=== PATIENT | female | born 1995 | race Two or more races ===

== ENCOUNTER 2021-10-16 16:36 | Emergency (ER) | payer OTHER ==
[~2021-10-16] VITALS: Ht 172.7 cm; Wt 104.3 kg
[2021-10-16 17:26] VITALS: BP 104/74
[2021-10-16] MEDS ORDERED: AMOX500T86 PO (17:44)
== END 2021-10-16 18:06 | disposition home or self-care (01) ==
LOC: ER 16:36
DX: S50.811A Abrasion of right forearm, initial encounter (principal); W55.03XA Scratched by cat, initial encounter; Y93.89 Activity, other specified; Y92.89 Other specified places as the place of occurrence of the external cause; Y99.8 Other external cause status